=== PATIENT | female | born 1990 | race Caucasian/White ===

== ENCOUNTER 2017-08-03 10:31 | Emergency (ER) | payer OTHER ==
[2017-08-03] MEDS ORDERED: NS 0.9% 1000 ML* 1,000 ML IV ONE (12:35)
[2017-08-03] MEDS ORDERED: cefTRIAXone VIAL(*) 1,000 MG VIAL IVPB ONE (12:35)
[2017-08-03] MEDS ORDERED: Ketorolac INJ* 30 MG/ML 1 ML VIAL IV ONE (12:36)
--- NOTE | 2017-08-03 12:43 | UC ---
Complaint Female HPI - HPI Summary HPI Summary: For the last week she has had flank pain and dysuria. For three days she began to have vomiting. She also has had subjective fever and new chills. No vaginal symptoms like discharge or pain. The abd pain she is having is upper abd and the flank pain is left side. No prior stone. No FH of stone. She has hx of uti. - History Of Current Complaint Chief Complaint: UCGeneralIllness Stated Complaint: LEFT SIDE/BACK PAIN FEVER VOMITING Time Seen by Provider: 08/03/17 12:23 Hx Obtained From: Patient Hx Last Menstrual Period: 06/25/17 ?: No Onset/Duration: Gradual Onset, Lasting Weeks Timing: Constant, Lasting Weeks Severity Initially: Moderate Severity Currently: Moderate Character: Sharp Aggravating Factor(s): Urination Alleviating Factor(s): Nothing Associated Signs And Symptoms: Positive: Fever, Nausea, Vomiting(# Of Episodes = ). Negative: Vaginal Bleeding/Discharge, Vaginal Discharge, Genital Swelling, Genital Blisters, Retained Foregin Body (Specify) - Allergies/Home Medications Allergies/Adverse Reactions: Allergies Allergy/AdvReac Type Severity Reaction Status Date / Time No Known Allergies Allergy Verified 08/03/17 11:53 Home Medications: Home Medications Metoclopramide TAB* [Reglan TAB*] 1 tab Q6HR PRN 08/03/17 [History Confirmed ] PMH/Surg Hx/FS Hx/Imm Hx Previously Healthy: No - prior uti. - Surgical History Surgical History: Yes Surgery Procedure, Year, and Place: BACK SURGERY AFTER GYMNASTIC ACCIDENT. left hand 2012 (fx). tonsillectomy - Family History Known Family History: Positive: None, Other - No prior kidney stones. - Social History Alcohol Use: None Substance Use Type: None Smoking Status (MU): Heavy Every Day Tobacco Smoker Type: Cigarettes Amount Used/How Often: 1/2 PK DAILY Length of Time of Smoking/Using Tobacco: started at age 18 Household Exposure Type: Cigarettes - Immunization History Most Recent Influenza Vaccination: no Review of Systems Genitourinary: Dysuria All Other Systems Reviewed And Are Negative: Yes Physical Exam Triage Information Reviewed: Yes Appearance: Well-Appearing, Well-Nourished, Pain Distress - she has pain with changes in position. Vital Signs: Initial Vital Signs Temp 98.7 F 08/03/17 11:53 Pulse 120 08/03/17 11:53 Resp 18 08/03/17 11:53 BP 95/58 08/03/17 11:53 Pulse Ox 98 08/03/17 11:53 Vital Signs Reviewed: Yes Eyes: Positive: Conjunctiva Clear. Negative: Conjunctiva Inflamed ENT: Positive: Pharynx normal Neck exam: Normal Neck: Positive: Supple, Nontender, No Lymphadenopathy Respiratory: Positive: Normal breath sounds, No respiratory distress, No accessory muscle use. Negative: Respiratory distress, Decreased breath sounds, Accessory muscle use, Crackles, Rhonchi, Stridor, Wheezing Cardiovascular: Positive: RRR, No Murmur, Pulses Normal Abdomen Description: Positive: Soft, CVA Tenderness (L), Other: - There is Luq tenderness without guarding.. Negative: Distended, Guarding, Peritoneal Signs, Pulsatile Mass Musculoskeletal: Positive: Strength Intact, ROM Intact, No Edema Neurological: Positive: Alert, Muscle Tone Normal. Negative: Fatigued Psychological: Positive: Normal Response To Family, Age Appropriate Behavior Skin: Negative: rashes Complaint Female Dx - Course Course Of Treatment: ct abd reviewed. No hydronephrosis. THere is question of small left calculus but this is not believed to be renal calculus by radiologist. We will aggressively manage with zofran, IV fluids, rocephin. She is not tachycardic currently and not toxic. She does agree to return tomorrow for re evaluation as it is going to be Saturday. Significant other present for the conversation. Preg negative. Non tender pelvis. No Fisher Crab symptoms. - Differential Dx/Diagnosis Differential Diagnosis/HQI/PQRI: Appendicitis, Cervicitis, Ectopic, Endometriosis, Ovarian Cyst, Ovarian Torsion, Pelvic Inflammatory Disease, Retained Foreign Body, Sexually Transmitted Disease, Tubo-ovarian Abscess, Ureteral Stone, Urinary Tract Infection Provider Diagnoses: pyelonephritis. Discharge - Discharge Plan Condition: Good Disposition: HOME Prescriptions: Cephalexin CAP* [Keflex CAP*] 500 mg PO TID #30 cap Ondansetron ODT TAB* [Zofran 4 MG Odt TAB*] 4 mg PO Q8H PRN #12 tab.odt PRN Reason: Vomiting Patient Education Materials: Kidney Infection (ED), Flank Pain (ED) Referrals: Madelyn Fuchs NP [Primary Care Provider] - 3 Days Additional Instructions: Return here tomorrow for re evaluation and to make sure you are improving.
--- NOTE | 2017-08-03 13:08 | RAD ---
CLINICAL HISTORY: Left flank pain and hematuria x1 week COMPARISON: None TECHNIQUE: Noncontrast CT examination of the abdomen and pelvis from the lung bases through the initial tuberosities. FINDINGS: VISUALIZED LUNG BASES: The visualized lung bases are grossly clear. There is no pleural effusion. ABDOMEN AND PELVIS: Evaluation of the solid organs and vasculature is limited without intravenous contrast. The liver, spleen, pancreas and adrenal glands are grossly normal in appearance. The gallbladder is normal. The kidneys are normal in appearance without focal mass, calcification or signs of hydronephrosis. Evaluation of the gastrointestinal tract is limited without oral contrast. The small and large bowel are not distended.The patient's normal appendix is identified in the right lower quadrant with gas mostly filling the lumen measuring just under 5 mm in diameter (coronal image 44). Gas and stool is seen throughout the length of the colon. There is no gross retroperitoneal or mesenteric lymphadenopathy. The uterus appears to be retroflexed. At the left adnexa there is a 5 mm focus of calcium that appears to be too low to be a renal calculus. This may be calcification of the left ovary. Fluid density structure in the right adnexa is most consistent with a dominant follicle. The abdominal aorta and iliac arteries are normal in course and diameter. Degenerative changes include multilevel loss of intervertebral disc height involving the lower thoracic and lumbar spine.There are no sinister bone lesions. IMPRESSION: 1. No definite renal calculi or signs of hydronephrosis. 2. Normal appendix. 3. Gynecologic findings as described above.
[2017-08-03 14:23] VITALS: BP 103/72
[2017-08-03 16:18] LABS: ABS Basophils 0 10^3/ul (0-0.2); ABS Eosinophils 0 10^3/ul (0-0.6); ABS Lymphocytes 0.8 10^3/ul (1.0-4.8); ABS Monocytes 1.7 10^3/ul (0-0.8); ABS Neutrophils 19.8 10^3/ul (1.5-7.7); ABS Nucleated RBC 0 10^3/ul; Eosinophil % 0 % (0-6); Hematocrit 33 % (35-47); Lymphocyte % 3.6 % (25-47); Mean Corpuscular HGB Conc 33 g/dl (31-36); Mean Corpuscular Hemoglobin 31 pg (27-31); Mean Corpuscular Volume 91 fL (80-97); Mean Platelet Volume 9 um3 (7.4-10.4); Nucleated Red Blood Cells % 0; Platelet Count 217 10^3/ul (150-450); Red Blood Count 3.62 10^6/ul (4.0-5.4); Red Cell Distribution Width 14 % (10.5-15); White Blood Count 22.4 10^3/ul (3.5-10.8)
[2017-08-03 16:30] LABS: EGFR Non-African American 32.6 (>60)
[2017-08-03 16:53] LABS: Monocytes % 4 % (0-13)
--- NOTE | 2017-08-04 08:02 | UC ---
- Progress Note Progress Note: needs to be rechecked today if markedly improved follow up here OK if same or worse needs to go to the ER Course/Dx - Course Course Of Treatment: ct abd reviewed. No hydronephrosis. THere is question of small left calculus but this is not believed to be renal calculus by radiologist. We will aggressively manage with zofran, IV fluids, rocephin. She is not tachycardic currently and not toxic. She does agree to return tomorrow for re evaluation as it is going to be Saturday. Significant other present for the conversation. Preg negative. Non tender pelvis. No Gear Finisher symptoms.
== END 2017-08-03 14:31 | disposition home or self-care (01) ==
LOC: UCCORT 10:31
DX: N12 Tubulo-interstitial nephritis, not specified as acute or chronic (principal); Z87.440 Personal history of urinary (tract) infections; Z87.891 Personal history of nicotine dependence
CPT/HCPCS: 36415; 74176; 80053; 81003; 84702; 85025; 87077; 87086; 87186; 96360; 96365; 96374; 99212; G0463; J0696; J1885

== ENCOUNTER 2018-01-09 16:02 | Emergency (ER) | payer BC ==
[2018-01-09 16:59] VITALS: BP 104/65
[2018-01-09] MEDS ORDERED: Ketorolac INJ* 30 MG/ML 1 ML VIAL IM ONE (17:29)
[2018-01-09] MEDS ORDERED: Ciprofloxacin TAB* 500 MG PO ONE (17:32)
--- NOTE | 2018-01-09 17:34 | ED ---
GI/ HPI - HPI Summary HPI Summary: 27 yr old female with the complaint of dysuria for the past almost two weeks and now this morning had onset of left flank pain, 7/10, and similar to prior kidney stones. Denies NVD, fever, chills. Denies diarrhea. No vaginal bleeding. - History of Current Complaint Chief Complaint: UCGU Time Seen by Provider: 01/09/18 16:44 Stated Complaint: LEFT SIDE PAIN Hx Last Menstrual Period: irregular Pain Intensity: 7 - Allergy/Home Medications Allergies/Adverse Reactions: Allergies Allergy/AdvReac Type Severity Reaction Status Date / Time peanut Allergy Swelling Verified 01/09/18 16:51 Of Face,Lips,& Throat Home Medications: Home Medications NK [No Home Medications Reported] 01/09/18 [History Confirmed 01/09/18] PMH/Surg Hx/FS Hx/Imm Hx - Surgical History Surgery Procedure, Year, and Place: BACK SURGERY AFTER GYMNASTIC ACCIDENT. left hand 2012 (fx). tonsillectomy. sx intervention for kidney stones Infectious Disease History: No Infectious Disease History: Denies: Traveled Outside the [place] in Last 30 Days - Family History Known Family History: Positive: None, Other - No prior kidney stones. - Social History Alcohol Use: None Substance Use Type: Reports: None Smoking Status (MU): Heavy Every Day Tobacco Smoker Type: Cigarettes Amount Used/How Often: 1 PK DAILY Length of Time of Smoking/Using Tobacco: started at age 18 Review of Systems Constitutional: Negative Positive: dysuria, flank pain All Other Systems Reviewed And Are Negative: Yes Physical Exam Triage Information Reviewed: Yes Vital Signs On Initial Exam: Initial Vitals Temp Pulse Resp BP Pulse Ox 99.8 F 108 16 104/65 100 01/09/18 16:54 01/09/18 16:54 01/09/18 16:54 01/09/18 16:54 01/09/18 16:54 Vital Signs Reviewed: Yes Appearance: Positive: Well-Appearing, No Pain Distress Skin: Positive: Warm, Skin Color Reflects Adequate Perfusion Head/Face: Positive: Normal Head/Face Inspection Eyes: Positive: EOMI ENT: Positive: Normal ENT inspection Neck: Positive: Nontender Respiratory/Lung Sounds: Positive: Clear to Auscultation, Breath Sounds Present Cardiovascular: Positive: RRR. Negative: Murmur Abdomen Description: Positive: CVA Tenderness (L) - some Musculoskeletal: Positive: Strength/ROM Intact Neurological: Positive: Sensory/Motor Intact, Alert, Oriented to Person Place, Time, CN Intact II-III Psychiatric: Positive: Normal - [place] Coma Scale Best Eye Response: 4 - Spontaneous Best Motor Response: 6 - Obeys Commands Best Verbal Response: 5 - Oriented Coma Scale Total: 15 Diagnostics - Vital Signs Vital Signs Temp Pulse Resp BP Pulse Ox 01/09/18 16:54 99.8 F 108 16 104/65 100 - Laboratory Lab Results: Lab Results 01/09/18 01/09/18 Range/Units 17:19 17:21 POC Urine Color Dark yellow POC Urine Clarity Cloudy POC Urine pH 6.5 (5-9) POC Ur Specif [place] 1.020 (1.010-1.030) POC Urine Protein Trace A (Negative) POC Ur Glucose (UA) Negative (Negative) POC Urine Ketones Negative (Negative) POC Urine Blood 1+ A (Negative) POC Urine Nitrite Positive A (Negative) POC Urine Bilirubin Negative (Negative) POC Urine Urobilinogen 1.0 (Negative) POC U Leukocyte Esteras 2+ A (Negative) POC Ur Test Negative (Negative) Lab Statement: Any lab studies that have been ordered have been reviewed, and results considered in the medical decision making process. - CT abdpelv CT Interpretation: Positive (See Comments) - large left ovary, and free fluid in cul de sac. CT Interpretation Completed By: Radiologist IRWIN Course/Dx - Course Course Of Treatment: 27 yr old with fever, left flank and abdominal pain, positive urine, Neg HCG, and some urinary symptoms. She has temp 101 now. She will go to the ER, and requests that her significant other take her there. She will require further work up, labs, SONO pelvis. Case DW Salima Rivas NP. [facility] and they are expecting the patient. 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 Her fiance is here and will drive her. - Diagnoses Provider Diagnoses: Pyelonephritis, Flank pain Discharge - Sign-Out/Discharge Documenting (check all that apply): Discharge/Admit/Transfer - Discharge Plan Condition: Good Disposition: TRANS HIGHER LVL OF CARE FAC Referrals: Madelyn Fuchs NP [Primary Care Provider] - Additional Instructions: You need to go to the ER for LABs, pelvic Sono and further work up of your pain , fever, and further treatment. - Billing Disposition and Condition Condition: GOOD Disposition: Trans Higher Lvl of Care Fac
--- NOTE | 2018-01-09 19:01 | RAD ---
Indication: Left flank pain. CT of the abdomen and pelvis was performed without oral or IV contrast administration. Coronal and sagittal reconstructed images were obtained. The lung bases demonstrate no pleural fluid, nodules or masses. Heart is of normal size without evidence of pericardial effusion. Liver is normal in size. No focal lesions or intrahepatic duct dilatation is noted. The spleen is normal in size. The pancreas demonstrates no definite mass or pancreatic duct dilatation. Common duct is not dilated. No definite adrenal masses are noted. The kidneys demonstrate no hydronephrosis of either kidney. Aorta and inferior vena cava are unremarkable. No retroperitoneal or pelvic lymphadenopathy is noted. Appendix is not clearly identified. No dilated loops of bowel are noted. There is a small amount of fluid in the cul-de-sac. Possibility of a left ovarian cyst should BE considered. The urinary bladder is otherwise unremarkable. Urinary bladder is identified and is unremarkable. IMPRESSION: No obstructive uropathy is noted. Appendix is not visualized. Enlarged left ovary with a small amount of free fluid in the cul-de-sac.
--- NOTE | 2018-01-11 08:00 | PN ---
Progress Note - Progress Note Date of Service: 01/11/18 Note: +E. coli urine pt was sent to ED for further eval please call for abx selection from ED ljj 01/11/2018
--- NOTE | 2018-01-12 15:07 | UC ---
- Progress Note Progress Note: Please call patient assure she was started on an antibiotic. This patient was transferred from urgent care to the emergency department for follow-up care. Please notify me of the antibiotic she was put on some we can check and sensitivity Course/Dx - Diagnoses Provider Diagnoses: Pyelonephritis, Flank pain Discharge - Sign-Out/Discharge Documenting (check all that apply): Discharge/Admit/Transfer - Discharge Plan Condition: Good Disposition: TRANS HIGHER LVL OF CARE FAC Patient Education Materials: Ovarian Cyst (ED), Kidney Infection (ED), Acute Abdominal Pain (ED) Referrals: Madelyn Fuchs NP [Primary Care Provider] - Additional Instructions: You need to go to the ER for LABs, pelvic Sono and further work up of your pain , fever, and further treatment. You have verbalized you do not want an ambulance transport and that your fiance will drive you. - Billing Disposition and Condition Condition: GOOD Disposition: Trans Higher Lvl of Care Fac
== END 2018-01-09 19:28 | disposition short-term general hospital (02) ==
LOC: UCCORT 16:02
DX: N12 Tubulo-interstitial nephritis, not specified as acute or chronic (principal)
CPT/HCPCS: 74176; 81003; 84702; 87077; 87086; 87186; 96372; 99212; A9270-GY; G0463; J1885

== ENCOUNTER 2018-01-30 10:58 | Emergency (ER) | payer BC ==
--- NOTE | 2018-01-30 11:57 | UC ---
Complaint Female HPI - HPI Summary HPI Summary: 27 year old female with complaint HAD A KIDNEY INFECTION ON THE LEFT SIDE THAT SHE WAS SEEN HERE FOR AND WAS SHIPPED TO ED FROM HERE. TOOK ABX PRESCRIBED BUT IS STILL SYMPTOMATIC WITH BURNING ON URINATION AND FOUL SMELLING URINE. HAS HAD 4 KIDNEY INFECTIONS THIS YEAR She feels the kidney infection is gone no kidney or flank pain. feels the urine still with smell and that she feels the uti never left --- took azo yesterday and no fever. no n/v/d - History Of Current Complaint Stated Complaint: URINARY Time Seen by Provider: 01/30/18 11:50 Hx Obtained From: Patient Hx Last Menstrual Period: irregular Onset/Duration: Gradual Onset Timing: Constant Related Hx: Similar Episode/Dx as: - Allergies/Home Medications Allergies/Adverse Reactions: Allergies Allergy/AdvReac Type Severity Reaction Status Date / Time peanut Allergy Swelling Verified 01/09/18 16:51 Of Face,Lips,& Throat PMH/Surg Hx/FS Hx/Imm Hx Previously Healthy: Yes GI/ History: Other - UTI/pyelo Other GI/ History: UTI/pyelo - Surgical History Surgical History: Yes Surgery Procedure, Year, and Place: BACK SURGERY AFTER GYMNASTIC ACCIDENT. left hand 2012 (fx). tonsillectomy. sx intervention for kidney stones - Family History Known Family History: Positive: None, Other - No prior kidney stones. - Social History Occupation: Employed Full-time Lives: With Family Alcohol Use: None Substance Use Type: None Smoking Status (MU): Heavy Every Day Tobacco Smoker Type: Cigarettes Amount Used/How Often: 1 PK DAILY Length of Time of Smoking/Using Tobacco: started at age 18 Household Exposure Type: Cigarettes - Immunization History Most Recent Influenza Vaccination: no Review of Systems Genitourinary: Dysuria, Hematuria, Frequency, Urgency Is Patient Immunocompromised?: No All Other Systems Reviewed And Are Negative: Yes Physical Exam Triage Information Reviewed: Yes Appearance: Well-Appearing, No Pain Distress, Well-Nourished Vital Signs Reviewed: Yes Eyes: Positive: Conjunctiva Clear ENT: Positive: Hearing grossly normal Neck: Positive: 1 Respiratory Exam: Normal Cardiovascular Exam: Normal Abdominal Exam: Normal Abdomen Description: Positive: Nontender, No Organomegaly, Soft, Other: - MINIMAL SUPRAPUBIC TENDERNESS. Negative: CVA Tenderness (R), CVA Tenderness (L) , Distended, Guarding Musculoskeletal Exam: Normal Neurological Exam: Normal Psychological Exam: Normal Skin Exam: Normal Complaint Female Dx - Course Course Of Treatment: ? interstitial cystitis if culture neg as the Azo was taken so no Udip here. advised to got o Uro Dr Cooley who she saw 6 mo for kidey stones she will call for follow up. She states that the "common UTI meds dont work" -- which she said was cipro, bactrim and macrobid. for that reason we will try a cephalosporin and await culture and f/u with PCP or Urologist - Differential Dx/Diagnosis Differential Diagnosis/HQI/PQRI: Ureteral Stone, Urinary Tract Infection Provider Diagnoses: UTI Discharge - Sign-Out/Discharge Documenting (check all that apply): Discharge/Admit/Transfer - Discharge Plan Condition: Good Disposition: HOME Prescriptions: Cephalexin CAP* [Keflex CAP*] 500 mg PO TID 7 Days #21 cap Patient Education Materials: Urinary Tract Infection in Women (DC) Referrals: Madelyn Fuchs NP [Primary Care Provider] - 4 Days Additional Instructions: PLEASE CALL YOUR UROLOGIST FOR FOLLOW UP WELL FOR THESE RECURRENT INFECTIONS - Billing Disposition and Condition Condition: GOOD Disposition: Home
[2018-01-30 11:58] VITALS: BP 106/51
--- NOTE | 2018-02-02 07:08 | UC ---
- Progress Note Progress Note: + Ecoli On cephalexin sensitive no change santij 02/02/18 Discharge - Sign-Out/Discharge Documenting (check all that apply): Post-Discharge Follow Up - Discharge Plan Condition: Good Disposition: HOME Prescriptions: Cephalexin CAP* [Keflex CAP*] 500 mg PO TID 7 Days #21 cap Patient Education Materials: Urinary Tract Infection in Women (DC) Referrals: Madelyn Fuchs NP [Primary Care Provider] - 4 Days Additional Instructions: PLEASE CALL YOUR UROLOGIST FOR FOLLOW UP WELL FOR THESE RECURRENT INFECTIONS - Billing Disposition and Condition Condition: GOOD Disposition: Home
== END 2018-01-30 12:32 | disposition home or self-care (01) ==
LOC: UCCORT 10:58
DX: F17.210 Nicotine dependence, cigarettes, uncomplicated (principal); N39.0 Urinary tract infection, site not specified; B96.20 Unspecified Escherichia coli [E. coli] as the cause of diseases classified elsewhere
CPT/HCPCS: 87077; 87086; 87186; 99212; G0463